=== PATIENT | male | born 1990 | race African-American/Black ===

== ENCOUNTER 2018-10-10 18:57 | Emergency (ER) | payer SELFPAY ==
[~2018-10-10] VITALS: Ht 177.8 cm; Wt 88.0 kg
[~2018-10-10 18:57] MED LIST: ALBU6.7H INH
[2018-10-10 18:59] VITALS: BP 152/83
== END 2018-10-10 22:26 | disposition left against medical advice (07) ==
LOC: ER 18:57
DX: Z53.21 Procedure and treatment not carried out due to patient leaving prior to being seen by health care provider (principal)

== ENCOUNTER 2018-10-17 04:09 | Emergency (ER) | payer SELFPAY ==
[~2018-10-17] VITALS: Ht 175.3 cm; Wt 80.0 kg
[2018-10-17] MEDS ORDERED: TETANUS, DIPHTHERIA, PERTUSSIS VAC/PF 0.5ML (>7YR OLD) IM ONE (04:45)
[2018-10-17 05:18] VITALS: BP 145/86
[2018-10-17] MEDS ORDERED: LIDOCAINE HCL/PF 1% 10 MG/ML 5ML VIAL IJ ONE (05:45)
== END 2018-10-17 07:14 | disposition home or self-care (01) ==
LOC: ER 04:09
DX: S01.01XA Laceration without foreign body of scalp, initial encounter (principal); S09.90XA Unspecified injury of head, initial encounter; J45.909 Unspecified asthma, uncomplicated; X99.0XXA Assault by sharp glass, initial encounter; Y93.89 Activity, other specified; Y92.488 Other paved roadways as the place of occurrence of the external cause
CPT/HCPCS: 12001; 70450; 90471; 90715; 99284; J3490

== ENCOUNTER 2021-04-07 20:44 | Inpatient (IN) | payer SELFPAY ==
[~2021-04-07] VITALS: Ht 175.3 cm; Wt 90.7 kg
[~2021-04-07 20:44] MED LIST changes: -ALBU6.7H INH; +ALBU6.7H11 INH
[2021-04-07] MEDS ORDERED: KETOROLAC 60MG/2ML VIAL IM STA (22:52)
[2021-04-07] MEDS ORDERED: ONDANSETRON HCL 4MG/2ML INJ IV STA (22:52)
[2021-04-07 23:30] LABS: BASOPHILS % 0.3 % (0.0-2.0); EOSINOPHILS % 1.3 % (0.0-5.0); HEMATOCRIT. 44.6 % (42.0-52.0); HEMOGLOBIN. 14.6 g/dL (14.0-18.0); LYMPHOCYTES % 12.7 % (20.0-50.0); MEAN CORPUSCULAR HEMOGLOBIN 28.2 pg (28.0-32.0); MEAN CORPUSCULAR VOLUME 85.9 fL (80.0-94.0); MEAN PLATELET VOLUME 7.6 fl (7.4-10.4); NEUTROPHILS % 75.7 % (40.0-76.0); PLATELET 291 x1000/uL (130-400); RED BLOOD CELL COUNT 5.18 mill/uL (4.7-6.1); RED CELL DISTRIBUTION WIDTH 13.1 % (11.6-14.6)
[2021-04-07 23:37] LABS: CHLORIDE 107 mEq/L (98-107)
[2021-04-07 23:41] LABS: ETHANOL BLOOD 67 mg/dL
[2021-04-08] MEDS ORDERED: PIPERACILLIN/TAZOBACTAM 3.375GM/50ML PREMIX IV ONE (00:45)
[2021-04-08] MEDS ORDERED: PIPERACILLIN/TAZ 3.375G PREMIX 50 ML IV NR (01:00)
[2021-04-08] MEDS ORDERED: SODIUM CHLORIDE 0.9% 1000ML BAG (SEPSIS BOLUS) IV NR (02:15)
[2021-04-08] MEDS ORDERED: IOHEXOL-300 100 ML BOTTLE ONE (03:13)
[2021-04-08] MEDS ORDERED: PIPERACILLIN/TAZ 3.375G PREMIX 50 ML IV SCH (09:00)
[2021-04-08] MEDS ORDERED: ACETAMINOPHEN 325MG TABLET PO PRN (09:15)
[2021-04-08] MEDS ORDERED: DOCUSATE SODIUM 100MG CAPSULE PO PRN (09:15)
[2021-04-08] MEDS ORDERED: GUAIFENESIN 200MG/10ML SUGAR FREE UDC PO PRN (09:15)
[2021-04-08] MEDS ORDERED: IPRATROPIUM/ALBUTEROL 0.5-3(2.5)MG/3ML NEB HHN PRN (09:15)
[2021-04-08] MEDS ORDERED: LORAZEPAM 2MG/ML CPJ IV PRN (09:15)
[2021-04-08] MEDS ORDERED: DIPHENHYDRAMINE 50MG/ML VIAL IV PRN (09:15)
[2021-04-08] MEDS ORDERED: ONDANSETRON HCL 4MG/2ML INJ IV PRN (09:15)
[2021-04-08] MEDS ORDERED: DEXT 5%/0.45% NACL 1000ML 1,000 ML IV SCH (09:15)
[2021-04-08] MEDS ORDERED: HYDRALAZINE 20MG/ML VIAL IV PRN (09:15)
[2021-04-08] MEDS ORDERED: ENOXAPARIN 40MG/0.4ML SYR SUBCUT SCH (09:15)
[2021-04-08] MEDS ORDERED: MORPHINE SULFATE 2 MG/ML CPJ (NOT FOR IM USE) IV PRN (09:15)
[2021-04-08] MEDS ORDERED: CLONIDINE 0.1MG TABLET PO PRN (09:15)
[2021-04-08] MEDS ORDERED: MAGNESIUM/ALUMINUM HYDROXIDE/SIMETHICONE 30ML UDC PO PRN (09:15)
[2021-04-08 09:30] VITALS: BP 147/67
[2021-04-08] MEDS: ENOXAPARIN 30MG/0.3ML SYR SUBCUT SCH ×2 (10:28→22:35)
[2021-04-08] MEDS ORDERED: LORAZEPAM 1MG TABLET PO PRN (10:45)
[2021-04-08] MEDS: PIPERACILLIN/TAZOBACTAM 3.375 G in DEXT 5% WATER 100 ML IV SCH ×3 (11:01→22:34)
[2021-04-08] MEDS: SODIUM CHLORIDE 0.9% 1,000 ML IV SCH (11:02)
[2021-04-08] MEDS ORDERED: KETOROLAC 30MG/ML VIAL IV SCH (11:30)
[2021-04-08 12:00] VITALS: BP 144/50
[2021-04-08] MEDS: FOLIC ACID 1 MG, THIAMINE HCL 100 MG, MVI, ADULT NO.1 10 ML in DEXTROSE 5% WATER 1,000 ML IV SCH (12:36)
[2021-04-08 13:08] LABS: HEPATITIS B SURFACE ANTIGEN NEGATIVE; VITAMIN B12 SERUM 528 pg/mL (211-911)
[2021-04-08 13:12] LABS: FOLIC ACID (FOLATE) SERUM > 20.00 ng/mL (>5.38)
[2021-04-08 13:38] LABS: HEPATITIS A AB IGM NEGATIVE (NEGATIVE)
[2021-04-08] MEDS: SODIUM CHLORIDE 0.9% INJ 3ML FLUSH IVF SCH ×2 (14:00→22:34)
[2021-04-08] MEDS ORDERED: IBUP-2741 MT (15:02)
[2021-04-08 16:00] VITALS: BP 128/76
[2021-04-08] MEDS: KETOROLAC 30MG/ML VIAL IV PRN (17:12)
[2021-04-09] MEDS: SODIUM CHLORIDE 0.9% 1,000 ML IV SCH (00:05)
[2021-04-09] MEDS: HYDROCODONE/ACETAMINOPHEN 5/325MG TABLET PO PRN ×2 (06:28→17:09)
[2021-04-09] MEDS: SODIUM CHLORIDE 0.9% INJ 3ML FLUSH IVF SCH ×3 (06:28→22:03)
[2021-04-09] MEDS: PIPERACILLIN/TAZOBACTAM 3.375 G in DEXT 5% WATER 100 ML IV SCH ×4 (06:29→23:43)
[2021-04-09 06:34] LABS: BASOPHILS % 0.9 % (0.0-2.0); EOSINOPHILS % 1.5 % (0.0-5.0); HEMATOCRIT. 40.3 % (42.0-52.0); HEMOGLOBIN. 13.1 g/dL (14.0-18.0); LYMPHOCYTES % 15.4 % (20.0-50.0); MEAN CORPUSCULAR HEMOGLOBIN 28.2 pg (28.0-32.0); MEAN CORPUSCULAR VOLUME 86.9 fL (80.0-94.0); MEAN PLATELET VOLUME 8.1 fl (7.4-10.4); MONOCYTES % 11.4 % (2.0-8.0); NEUTROPHILS % 70.8 % (40.0-76.0); PLATELET 245 x1000/uL (130-400); RED BLOOD CELL COUNT 4.63 mill/uL (4.7-6.1)
[2021-04-09 06:42] LABS: CHLORIDE 106 mEq/L (98-107)
[2021-04-09 08:00] VITALS: BP 136/80
[2021-04-09] MEDS: ENOXAPARIN 30MG/0.3ML SYR SUBCUT SCH ×2 (09:31→21:57)
[2021-04-09] MEDS: KETOROLAC 30MG/ML VIAL IV PRN ×2 (10:07→21:57)
[2021-04-09 12:00] VITALS: BP 120/74
[2021-04-09] MEDS: FOLIC ACID 1 MG, THIAMINE HCL 100 MG, MVI, ADULT NO.1 10 ML in DEXTROSE 5% WATER 1,000 ML IV SCH (13:22)
[2021-04-09 16:00] VITALS: BP 159/83
[2021-04-09 20:00] VITALS: BP 128/70
[2021-04-10] VITALS: BP 117/40
[2021-04-10] MEDS: SODIUM CHLORIDE 0.9% 1,000 ML IV SCH (02:45)
[2021-04-10 04:00] VITALS: BP 157/88
[2021-04-10] MEDS: PIPERACILLIN/TAZOBACTAM 3.375 G in DEXT 5% WATER 100 ML IV SCH ×4 (05:18→22:39)
[2021-04-10] MEDS: SODIUM CHLORIDE 0.9% INJ 3ML FLUSH IVF SCH ×3 (05:18→21:26)
[2021-04-10 07:08] LABS: BASOPHILS % 0.4 % (0.0-2.0); EOSINOPHILS % 4.9 % (0.0-5.0); HEMATOCRIT. 38.4 % (42.0-52.0); HEMOGLOBIN. 12.8 g/dL (14.0-18.0); LYMPHOCYTES % 19.8 % (20.0-50.0); MEAN CORPUSCULAR HEMOGLOBIN 28.7 pg (28.0-32.0); MEAN CORPUSCULAR VOLUME 86.3 fL (80.0-94.0); MONOCYTES % 11.6 % (2.0-8.0); NEUTROPHILS % 63.3 % (40.0-76.0); PLATELET 259 x1000/uL (130-400); RED BLOOD CELL COUNT 4.45 mill/uL (4.7-6.1); RED CELL DISTRIBUTION WIDTH 12.6 % (11.6-14.6)
[2021-04-10 07:38] LABS: CHLORIDE 102 mEq/L (98-107)
[2021-04-10 08:00] VITALS: BP 109/61
[2021-04-10] MEDS: ENOXAPARIN 30MG/0.3ML SYR SUBCUT SCH ×2 (08:44→21:26)
[2021-04-10 12:00] VITALS: BP 143/63
[2021-04-10] MEDS: FOLIC ACID 1 MG, THIAMINE HCL 100 MG, MVI, ADULT NO.1 10 ML in DEXTROSE 5% WATER 1,000 ML IV SCH (12:50)
[2021-04-10] MEDS: ASCORBIC ACID 500 MG TABLET PO SCH (13:02)
[2021-04-10 16:00] VITALS: BP 147/81
[2021-04-10] MEDS: FERROUS SULFATE 325MG TABLET PO SCH (17:08)
[2021-04-10 20:00] VITALS: BP 126/75
[2021-04-11] VITALS: BP 122/72
[2021-04-11 04:00] VITALS: BP 142/67
[2021-04-11] MEDS: SODIUM CHLORIDE 0.9% 1,000 ML IV SCH (05:25)
[2021-04-11] MEDS: SODIUM CHLORIDE 0.9% INJ 3ML FLUSH IVF SCH ×2 (06:07→14:00)
[2021-04-11] MEDS: PIPERACILLIN/TAZOBACTAM 3.375 G in DEXT 5% WATER 100 ML IV SCH ×2 (06:07→12:00)
[2021-04-11 08:00] VITALS: BP 136/46
[2021-04-11] MEDS: ENOXAPARIN 30MG/0.3ML SYR SUBCUT SCH (08:11)
[2021-04-11] MEDS: ASCORBIC ACID 500 MG TABLET PO SCH (08:11)
[2021-04-11] MEDS: FERROUS SULFATE 325MG TABLET PO SCH (08:12)
[2021-04-11 12:00] VITALS: BP 105/40
[2021-04-11] MEDS: FOLIC ACID 1 MG, THIAMINE HCL 100 MG, MVI, ADULT NO.1 10 ML in DEXTROSE 5% WATER 1,000 ML IV SCH (13:00)
[2021-04-11 14:03] VITALS: BP 105/40
[2021-04-12] MEDS ORDERED: ENOXAPARIN 40MG/0.4ML SYR SUBCUT SCH (09:00)
== END 2021-04-11 15:15 | disposition home or self-care (01) ==
LOC: ER 20:44 → 6EST 04-08 03:31 → ENRESERV 04-08 08:34
PROVIDERS: ADMIT Internal Medicine; ATTEND Internal Medicine
DX: K81.0 Acute cholecystitis (principal); G93.40 Encephalopathy, unspecified; K82.0 Obstruction of gallbladder; E66.9 Obesity, unspecified; F10.129 Alcohol abuse with intoxication, unspecified; J45.909 Unspecified asthma, uncomplicated; K76.0 Fatty (change of) liver, not elsewhere classified; Z60.2 Problems related to living alone; D64.9 Anemia, unspecified; Z68.29 Body mass index [BMI] 29.0-29.9, adult; Z79.899 Other long term (current) drug therapy
CPT/HCPCS: 36415; 74177; 76705; 78227; 80048; 80053; 80076; 80320; 82607; 82728; 82746; 83540; 83550; 83605; 84145; 85025; 86705; 86709; 86803; 87340; 99285; A9537; C1893; J1650; J1885; J2270; J2405; J2543; J3411; J3490; J7030; J7040; J7060; J7070; Q9967; G0480

== ENCOUNTER 2022-10-27 22:01 | Emergency (ER) | payer SELFPAY ==
[~2022-10-27] VITALS: Ht 175.3 cm; Wt 81.6 kg
[~2022-10-27 22:01] MED LIST changes: -ALBU6.7H11 INH; +ALBU6.7H15 INH
[2022-10-27 23:50] LABS: CLARITY URINE CLOUDY (CLEAR); COLOR URINE YELLOW (YELLOW); KETONES URINE TRACE (NEGATIVE); LEUKOCYTE ESTERASE URINE 3+ (NEGATIVE); NITRITE URINE NEGATIVE (NEGATIVE); OCCULT BLOOD URINE NEGATIVE (NEGATIVE); PH URINE 6.5 (4.5-8.0); PROTEIN URINE TRACE (NEGATIVE); SPECIFIC GRAVITY URINE 1.023 (1.005-1.030)
[2022-10-28] MEDS ORDERED: IBUP-2029 MT (01:08)
[2022-10-28] MEDS ORDERED: DOXY100C5 MT (01:08)
[2022-10-28] MEDS ORDERED: CEFTRIAXONE SODIUM 500 MG/VIAL IM ONE (01:15)
[2022-10-28 01:37] VITALS: BP 122/79
[2022-10-30 07:07] LABS: NEISSERIA GONORRHOEAE NAA Positive (Negative)
== END 2022-10-28 01:39 | disposition home or self-care (01) ==
LOC: ER 22:01
DX: A56.19 Other chlamydial genitourinary infection (principal); A54.23 Gonococcal infection of other male genital organs; N30.90 Cystitis, unspecified without hematuria; N50.3 Cyst of epididymis; N43.3 Hydrocele, unspecified; R03.0 Elevated blood-pressure reading, without diagnosis of hypertension
CPT/HCPCS: 76870; 81003; 87086; 87491; 87591; 93976; 96372; 99284; J0696

== ENCOUNTER 2023-09-23 08:30 | Emergency (ER) | payer MEDICAID ==
[~2023-09-23] VITALS: Ht 177.8 cm; Wt 91.0 kg
[~2023-09-23 08:30] MED LIST changes: +DOXY100C5 MT; +IBUP-2029 MT
[2023-09-23 08:43] VITALS: BP 131/80; PULSE 85; RESP 18; TEMP 98.5; O2SAT 99
[2023-09-23] MEDS ORDERED: ACETAMINOPHEN 325MG TABLET PO STA (08:54)
[2023-09-23 09:32] LABS: CLARITY URINE CLEAR (CLEAR); COLOR URINE YELLOW (YELLOW); GLUCOSE URINE NEGATIVE (NEGATIVE); KETONES URINE NEGATIVE (NEGATIVE); LEUKOCYTE ESTERASE URINE NEGATIVE (NEGATIVE); NITRITE URINE NEGATIVE (NEGATIVE); OCCULT BLOOD URINE NEGATIVE (NEGATIVE); PH URINE 6.5 (4.5-8.0); PROTEIN URINE TRACE (NEGATIVE); SPECIFIC GRAVITY URINE 1.028 (1.005-1.030)
[2023-09-23 09:34] LABS: BACTERIA URINE NONE SEEN; RBC URINE NONE SEEN /hpf (0-2); SQUAMOUS EPITHELIAL CELL URINE NONE SEEN /lpf (RARE/1+); WBC URINE 0-2 /hpf (0-2); YEAST URINE NONE SEEN
[2023-09-23] MEDS ORDERED: DOXY100C5 MT (09:48)
[2023-09-23] MEDS ORDERED: CEFTRIAXONE SODIUM 500 MG/VIAL IM ONE (10:00)
== END 2023-09-23 11:23 | disposition home or self-care (01) ==
LOC: ER 09:16
DX: A64 Unspecified sexually transmitted disease (principal); J45.909 Unspecified asthma, uncomplicated
CPT/HCPCS: 81003; 96372; 99283; J0696; Z7610

== ENCOUNTER 2024-07-25 12:53 | Emergency (ER) | payer MEDICAID ==
[~2024-07-25] VITALS: Ht 172.7 cm; Wt 74.0 kg
[2024-07-25 13:03] VITALS: O2SAT 99
[2024-07-25] MEDS: CEFTRIAXONE SODIUM 500MG VIAL IM ONE (14:40)
[2024-07-25] MEDS: LIDOCAINE HCL/PF 1% 10 MG/ML 5ML VIAL INFIL ONE (14:40)
[2024-07-25] MEDS ORDERED: NAPR-681 PO (14:49)
[2024-07-25] MEDS ORDERED: DOXY100C74 MT (14:49)
[2024-07-25 14:53] VITALS: BP 162/82; PULSE 102; RESP 18; TEMP 37.00296; O2SAT 98
[2024-07-25 14:56] LABS: CLARITY URINE CLOUDY (CLEAR); COLOR URINE YELLOW (YELLOW); GLUCOSE URINE NEGATIVE (NEGATIVE); KETONES URINE TRACE (NEGATIVE); LEUKOCYTE ESTERASE URINE 3+ (NEGATIVE); NITRITE URINE NEGATIVE (NEGATIVE); OCCULT BLOOD URINE TRACE (NEGATIVE); PROTEIN URINE 2+ (NEGATIVE)
[2024-07-25 16:03] LABS: BACTERIA URINE 1+; RBC URINE TNTC /hpf (0-2); SQUAMOUS EPITHELIAL CELL URINE 1+ /lpf (RARE/1+); WBC URINE 0-2 /hpf (0-2)
[2024-07-28 04:09] LABS: CHLAMYDIA TRACHOMATIS NAA Positive (Negative); NEISSERIA GONORRHOEAE NAA Positive (Negative)
== END 2024-07-25 15:25 | disposition home or self-care (01) ==
LOC: ER 12:53
DX: N34.2 Other urethritis (principal); J45.909 Unspecified asthma, uncomplicated; Z79.899 Other long term (current) drug therapy
CPT/HCPCS: 99283; 87491; 87591; 81003; 87086; 96372; J0696; J3490